=== PATIENT | female | born 1995 | race Caucasian/White ===

== ENCOUNTER 2024-02-06 16:17 | Emergency (ER) | payer BC, SELFPAY ==
[2024-02-06 16:47] VITALS: BP 135/81; PULSE 77; RESP 16; TEMP 36.7; O2SAT 100
--- NOTE | 2024-02-06 17:52 | ED.EAR ---
HPI - Ear Problem General Chief complaint: Ear Stated complaint: RT Ear Pain Time Seen by Provider: 02/06/24 17:53 Source: patient, RN notes reviewed and old records reviewed Mode of arrival: ambulatory Limitations: no limitations History of Present Illness HPI Narrative: patient presents with complaints of right ear discomfort. She reports that she has had some intermittent discomfort to the right ear since December. She denies any runny nose. She denies any outright pain. She denies fever, chills, sweats. She denies any injury or trauma. She is not taking anything for her symptoms Related Data Allergies Allergy/AdvReac Type Severity Reaction Status Date / Time No Known Allergies Allergy Verified 02/06/24 16:54 Review of Systems Review of Systems: All systems reviewed & are unremarkable except as noted in HPI and below Constitutional: Constitutional: Reports no additional constitutional complaints ENT: Reports system reviewed and no additional complaints, except as documented, Reports as per HPI and Reports otalgia Cardiovascular: Cardiovascular: Reports no additional cardiovascular complaints Respiratory: Respiratory: Reports no additional respiratory complaints Gastrointestinal: Gastrointestinal: Reports no additional gastrointestinal complaints PMFSH Comments At the time of my signature, I reviewed and agree with the nursing past medical, surgical, social, and family history. There is no relevant family history pertinent to the patient complaint. Exam Const: General: cooperative, no acute distress, alert and awake Orientation/consciousness: oriented to person, oriented to place and oriented to time HENMT: Head: normal to inspection Ears: Abnormal EAC present cerumen impaction on the right Resp: Effort & Inspection: normal respiratory effort and able to speak in complete sentences Auscultation: clear to auscultation bilaterally, no crackles, no rales, no rhonchi and no wheezes Cardio: Palpation: normal PMI Rate: regular rate Rhythm: regular rhythm Heart sounds: S1 normal heart sound present and S2 normal heart sound present Neuro: General: oriented to person, oriented to place and oriented to time Cranial nerves: Yes CN's II-XII intact bilaterally Psych: Appearance: grossly normal Thought process: Normal thought process present Insight: Good insight present (Psych) Judgement: Good judgement present (Psych) Course Course Level of Care: Express Care Visit Vital Signs Vital signs: Vital Signs Temperature 98.0 F 02/06/24 16:47 Pulse Rate 77 02/06/24 16:47 Respiratory Rate 16 02/06/24 16:47 Blood Pressure 135/81 02/06/24 16:47 Pulse Oximetry 100 02/06/24 16:47 Oxygen Delivery Room Air 02/06/24 16:47 Temperature 98.0 F 02/06/24 16:47 Pulse Rate 77 02/06/24 16:47 Respiratory Rate 16 02/06/24 16:47 Blood Pressure 135/81 02/06/24 16:47 Pulse Oximetry 100 02/06/24 16:47 Oxygen Delivery Room Air 02/06/24 16:47 Reviewed Medical Decision Making MDM Narrative Medical decision making narrative: On exam only abnormal finding is cerumen impaction of the right ear. Recommended debrox. Follow with primary care provider, emergency department for new or worse symptoms. Discharge instructions reviewed with patient, as well as provided in writing per nursing staff. The instructions also include specific and strict return/GO TO THE ER as well as f/u information. All questions have been answered, and the patient deny any further questions with discharge and discharge plan. Some parts of this dictation were generated by voice recognition software and may contain typographical and/or grammatical inaccuracies. Medical Records Medical records reviewed: Yes I reviewed the external patient's medical records. Vital Signs Vital Signs: Vital Signs Temperature 98.0 F 02/06/24 16:47 Pulse Rate 77 02/06/24 16:47 Respiratory Rate 16 02/06/24 16:47 Blood
== END 2024-02-06 18:02 | disposition home or self-care (01) ==
PROVIDERS: Emergency Provider Nurse Practitioner Family
DX: H61.21 Impacted cerumen, right ear (principal)
CPT/HCPCS: 99213; G0463